=== PATIENT | female | born 1955 | race Caucasian/White ===

== ENCOUNTER → 2021-10-07 | Outpatient (CLI) | payer MEDICARE ==
--- NOTE | 2021-10-07 10:35 | KCIC ---
EXAMINATION: MRI RIGHT LOWER EXTREMITY JOINT WITHOUT INDICATIONS: Right knee pain and swelling after fall. TECHNIQUE: Multiplanar multisequence MRI of the right knee was obtained without contrast. COMPARISON: Bilateral knee radiograph 09/27/2021. FINDINGS: MENISCI: The medial and lateral menisci are intact. Popliteomeniscal fascicles are irregular in appe arance. LIGAMENTS: The ACL and PCL are intact. There is a partial tear of the conjoined tendon of the latera l collateral ligament complex which is irregular with surrounding edema. The popliteus tendon is inta ct. Iliotibial band is intact. There is edema in the posterior lateral corner with irregularity of th e arcuate ligament and popliteal fibular ligament, suspicious for posterolateral corner injury. The M CL is intact. EXTENSOR MECHANISM: The quadriceps and patellar tendons are intact. Fat pads are normal. Retinacula are intact. BONES AND CARTILAGE: There is a minimally displaced acute oblique fracture of the fibular head with e xtensive marrow edema and surrounding soft tissue edema. Deep partial-thickness cartilage loss at the medial patellar facet. Superficial and deep cartilage loss along the median ridge of the patella wit h subchondral cysts. Scattered mild cartilage loss along the trochlea. There are scattered predominan tly superficial partial-thickness cartilage loss in the medial compartment. There is an acute appeari ng full-thickness cartilage defect in the posterior weightbearing lateral femoral condyle measuring 9 x 2 mm (TR by AP). Focal subchondral marrow edema in the peripheral lateral femoral condyle. OTHER: Small joint effusion. There is a small para meniscal cyst along the anterior medial tibial pl ateau with a 2 mm intra-articular body. Partial tear of the soleus muscle. Soft tissue edema around t he fibular head. There is mild increased signal in the common peroneal nerve as it courses around the fibular head. IMPRESSION: 1. Minimally displaced acute fracture of the fibular head. 2. Grade 2 injury of the conjoined tendon of the lateral collateral ligament complex. 3. Possible posterolateral corner injury. 4. Overall mild tricompartmental cartilage loss with an acute appearing full-thickness cartilage defe ct in the lateral femoral condyle measuring 9 x 2 mm. 5. Small joint effusion. Soft tissue edema around the fibular head. Small partial tear of the soleus muscle. 6. Mildly increased signal in the common peroneal nerve as it courses around the fibular head. Electronically signed by: Christel Francisco MD (10/07/2021 10:33 AM) [id number]
== END ==
LOC: KCIC MRI 08:53
PROVIDERS: ATTEND Physician Assistant Medical
DX: S82.491A Other fracture of shaft of right fibula, initial encounter for closed fracture (principal); R60.0 Localized edema; M25.461 Effusion, right knee; M25.861 Other specified joint disorders, right knee; W19.XXXA Unspecified fall, initial encounter; Y93.89 Activity, other specified; Y92.89 Other specified places as the place of occurrence of the external cause; Y99.8 Other external cause status
CPT/HCPCS: 73721